=== PATIENT | male | born 1980 | race Caucasian/White ===

== ENCOUNTER 2016-12-02 13:42 | Emergency (ER) ==
[2016-12-02 13:53] VITALS: BP 125/81; TEMP 97.9; BMI 24.0
== END 2016-12-02 14:55 | disposition left against medical advice (07) ==
LOC: ED 13:42
DX: S99.911A Unspecified injury of right ankle, initial encounter (principal); R20.0 Anesthesia of skin; Y93.72 Activity, wrestling
CPT/HCPCS: 99282

== ENCOUNTER 2016-12-04 12:57 | Emergency (ER) ==
[2016-12-04 12:57] VITALS: BMI 24.0
[2016-12-04 13:11] VITALS: BP 129/85; TEMP 98
--- NOTE | 2016-12-04 13:22 | ED.PDOC ---
General ED Provider: Dr. FRANCINE MONTIEL JR Chief Complaint: Foot Pain/Injury Stated Complaint: Pain rt foot across the top of foot. Took a wrong step et felt a pop. Occurred in [place]. Seen in an ER there. Was told it was speained. Wants confirmation it is not broken. Has wrap on that was placed in [place]. Removes it from time to time et puts it back in place. Has crutches. Given Maxatawny et ibuprofen 800 mg in [place].[ End ]11/30/16 98.0 68 20 98% 129/85 3/10 injury in the ring at [facility] informed should see PMD for wrestling injuries mother states called clinic told to go to walk-in clinic in [place] Time Seen by Physician: 13:17 Mode of Arrival: Walk-In Information Source: Patient Exam Limitations: No limitations [facility] Documentation Reviewed and Agree: No Review of Systems - Review Of Systems Constitutional: Reports: No symptoms Eyes: Reports: No symptoms Ears, Nose, Mouth, Throat: Reports: No symptoms Respiratory: Reports: No symptoms Cardiac: Reports: No symptoms GI: Reports: No symptoms : Reports: No symptoms Musculoskeletal: Reports: Joint pain (right foot) Skin: Reports: No symptoms Neurological: Reports: No symptoms Endocrine: Reports: No symptoms Hematologic/Lymphatic: Reports: No symptoms All Other Systems: Other Past Medical History - Past Medical History Previously Healthy: Yes Endocrine: Reports: None Cardiovascular: Reports: None Respiratory: Reports: None, Pneumonia Hematological: Reports: None Gastrointestinal: Reports: None Genitourinary: Reports: None Neuro/Psych: Reports: None Musculoskeletal: Reports: Joint Pain Cancer: Reports: None - Surgical History General Surgical History: Reports: None, Other (Urtethral widening) - Family History Family History: Reports: None - Social History Smoking Status: Current every day smoker, Light tobacco smoker Hx Substance Use: No Alcohol Screening: Occasionally Physical Exam - Physical Exam Appearance: Well-appearing, Thin Pain Distress: Mild Neck: Supple Respiratory: Airway patent Musculoskeletal: Normal strength, ROM intact, No edema Skin: Warm, Dry, Normal color Neurological: Sensation intact Critical Care Note - Critical Care Note Total Time (mins): 0 Course - Course Orders, Labs, Meds: Orders Category Date Time Status FOOT, RIGHT 3 VIEWS Stat RADS 12/04/16 13:22 Completed Vital Signs: Temp Pulse Resp BP Pulse Ox 12/04/16 12:58 98.0 F 68 20 129/85 98 Departure - Departure Time of Disposition: 14:10 Disposition: HOME SELF-CARE Discharge Problem: Injury of foot Instructions: Foot Contusion (ED) Condition: Good Pt referred to PMD for follow-up: Yes Additional Instructions: rest ice imelda wrap recheck PMD one week Allergies/Adverse Reactions: Allergies codeine Adverse Reaction (Verified 12/04/16 13:08) Home Medications: Ambulatory Orders Hydrocodone/Acetaminophen [Hydrocodon-Acetaminophn 10-325] 1 each PO Q6-8H PRN 12/02/16 Ibuprofen 800 mg PO Q6-8H PRN 12/02/16
--- NOTE | 2016-12-04 13:52 | DI ---
EXAM: RIGHT FOOT, 3 VIEWS HISTORY: Right foot pain FINDINGS / IMPRESSION: There may be swelling of the dorsum of the foot. Correlate clinically. No fracture or dislocation. No arthropathy.
== END 2016-12-04 14:19 | disposition home or self-care (01) ==
LOC: ED 12:57
DX: S99.921A Unspecified injury of right foot, initial encounter (principal); Y93.72 Activity, wrestling; F17.210 Nicotine dependence, cigarettes, uncomplicated
CPT/HCPCS: 99283

== ENCOUNTER 2018-03-08 17:18 | Emergency (ER) ==
[2018-03-08 17:22] VITALS: BP 157/101; TEMP 97.9; BMI 23.8
--- NOTE | 2018-03-08 18:40 | ED.PDOC ---
General ED Provider: Dr. LINCOLN JOHNSTON-ER Chief Complaint: Tooth Problem Stated Complaint: lluvia got an abscess Time Seen by Physician: 18:39 Mode of Arrival: Walk-In Information Source: Patient Exam Limitations: No limitations [facility] Documentation Reviewed and Agree: Yes Does patient meet sepsis criteria?: No If yes, has appropriate treatment been initiated?: No System Inflammatory Response Syndrome: Not Applicable Sepsis Protocol: For patient's 13 years and over: Temp is 96.8 and below OR 101 and greater Pulse >90 BPM Resp >20/minute Acutely Altered Mental Status Are patient's symptoms suggestive of a new infection, such as: -Pneumonia -Skin, Soft Tissue -Endocarditis -UTI -Bone, Joint Infection -Implantable Device -Acute Abdominal Infection -Wound Infection -Meningitis -Blood Stream Catheter Infection -Unknown EENT Complaint Exam - Dental/Oral Complaint/Exam Mechanism of Injury: Unknown Onset/Duration: 4 days Symptoms Are: Still present Timing: Constant Initial Severity: Mild Current Severity: Mild Location: upper teeth Character: Reports: Dull, Aching, Throbbing Aggravating: Reports: Heat, Cold, Chewing Alleviating: Reports: None Associated Signs and Symptoms: Reports: Swelling, Foul odor Related History: Reports: Similar episode, Previous tooth problem Cardiac Risk Factors: Reports: None Tooth Findings: Present: Percussion tenderness, Gross decay, Gross caries Cervical Lymphadenopathy Present: No Facial Swelling Present: No Bleeding Present: No Septal Hematoma: No Foreign Body Present: No Dysphagia Present: No Drooling Present: No Asymmetrical Tonsillar Swelling Present: No Uvula Midline: Yes Divya-tonsillar Fluctuence: No Trismus Present: No Palatal Petechiae Present: No Scarlatinaform Rash Present: No Differential Diagnoses: Dental Abcess, Dental Caries Review of Systems - Review Of Systems Constitutional: Reports: No symptoms Eyes: Reports: No symptoms Ears, Nose, Mouth, Throat: Reports: Mouth pain, Mouth swelling Respiratory: Reports: No symptoms Cardiac: Reports: No symptoms GI: Reports: No symptoms : Reports: No symptoms Musculoskeletal: Reports: No symptoms Skin: Reports: No symptoms Neurological: Reports: No symptoms Endocrine: Reports: No symptoms Hematologic/Lymphatic: Reports: No symptoms All Other Systems: Reviewed and Negative Past Medical History - Past Medical History Previously Healthy: Yes Endocrine: Reports: None Cardiovascular: Reports: None Respiratory: Reports: None, Pneumonia Hematological: Reports: None Gastrointestinal: Reports: None Genitourinary: Reports: None Neuro/Psych: Reports: None Musculoskeletal: Reports: Joint Pain Cancer: Reports: None - Surgical History General Surgical History: Reports: None, Other (Urtethral widening) - Family History Family History: Reports: None - Social History Smoking Status: Current every day smoker, Heavy tobacco smoker Hx Substance Use: No Alcohol Screening: Occasionally Physical Exam - Physical Exam Appearance: Well-appearing Pain Distress: Moderate Eyes: GABI ENT: Ears normal, Nose normal, Erythema Neck: Supple Respiratory: Airway patent, Breath sounds clear, Breath sounds equal, Respirations nonlabored Cardiovascular: RRR, Pulses normal, No rub, No murmur GI/: Soft Musculoskeletal: Normal strength Skin: Warm Neurological: Sensation intact Psychiatric: Affect appropriate, Mood appropriate Critical Care Note - Critical Care Note Total Time (mins): 0 Course - Course Vital Signs: Temp Pulse Resp BP Pulse Ox 03/08/18 17:18 97.9 F 64 16 157/101 H 98 Departure - Departure Time of Disposition: 18:40 Disposition: HOME SELF-CARE Discharge Problem: Dental abscess Instructions: Dental Abscess (ED) Condition: Good Pt referred to PMD for follow-up: No IPMP verified?: No Additional Instructions: clindamycin 300mg tid x 7 dasy--norco 7.5mg q 4hrs prn pain #10--f/u dentist mindi Allergies/Adverse Reactions: Allergies codeine Adverse Reaction (Verified 03/08/18 17:24) Home Medications: Ambulatory Orders 1 [No Reported Medications] 03/08/18 Disposition Discussed With: Patient, Family
== END 2018-03-08 18:48 | disposition home or self-care (01) ==
LOC: ED 17:18
DX: K04.7 Periapical abscess without sinus (principal); K02.7 Dental root caries; F17.210 Nicotine dependence, cigarettes, uncomplicated
CPT/HCPCS: 99282